=== PATIENT | female | born 1965 | race Two or more races ===

== ENCOUNTER 2022-02-25 14:48 | Emergency (ER) | payer OTHER | END 2022-02-25 18:43 | disposition home or self-care (01) | LOC: ER 14:48 | DX: S42.255A Nondisplaced fracture of greater tuberosity of left humerus, initial encounter for closed fracture (principal); X58.XXXA Exposure to other specified factors, initial encounter; Y93.01 Activity, walking, marching and hiking; Y92.830 Public park as the place of occurrence of the external cause; Y99.9 Unspecified external cause status ==